=== PATIENT | male | born 1975 | race Caucasian/White ===

== ENCOUNTER 2021-08-14 07:05 | Day surgery (SDC) | payer OTHER ==
[~2021-08-14] VITALS: Ht 165.1 cm; Wt 102.1 kg
[~2021-08-14 07:05] MED LIST: LIPITOR20 MG PO; LYRICA50 MG PO; OXYCODONE15 MG PO; POTASSIUM99 MG PO; TAMSULOSIN0.4 MG PO; VENTOLIN HFA IN; VITAMIN B-12500 MCG PO; XANAX1 MG PO; ZOLOFT25 MG PO
[2021-08-14 10:22] VITALS: BP 116/70
== END 2021-08-14 10:35 | disposition home or self-care (01) | DRG 726 ==
LOC: ORM 07:05
PROVIDERS: ATTEND Urology
PROC: 0VB03ZX Excision of Prostate, Percutaneous Approach, Diagnostic (ICD-10-PCS; principal; 2021-08-14)
PROC: BV49ZZZ Ultrasonography of Prostate and Seminal Vesicles (ICD-10-PCS; 2021-08-14)
DX: N40.1 Benign prostatic hyperplasia with lower urinary tract symptoms (principal); N13.8 Other obstructive and reflux uropathy; N52.9 Male erectile dysfunction, unspecified; I25.10 Atherosclerotic heart disease of native coronary artery without angina pectoris; E78.2 Mixed hyperlipidemia; F41.9 Anxiety disorder, unspecified; F32.A Depression, unspecified; F17.210 Nicotine dependence, cigarettes, uncomplicated
CPT/HCPCS: J0131; J1956